=== PATIENT | male | born 1970 | race Caucasian/White ===

== ENCOUNTER 2016-09-11 08:02 | Emergency (ER) ==
[2016-09-11 08:36] LABS: URINE CULTURE NEEDED? NO; URINE SOURCE CLEAN CATCH
[2016-09-11 08:47] LABS: BILIRUBIN URINE NEGATIVE (NEGATIVE); BLOOD URINE NEGATIVE (NEGATIVE); COLOR YELLOW; GLUCOSE URINE NEGATIVE (NEGATIVE); LEUKOCYTES URINE NEGATIVE (NEGATIVE); NITRITE URINE NEGATIVE (NEGATIVE); PH URINE 8.5; PROTEIN URINE 50 mg/dL (NEGATIVE); TURBIDITY URINE HAZY (CLEAR); UROBILINOGEN URINE NORMAL (NORMAL)
[2016-09-11 08:52] LABS: URINE MICRO REVIEW NEEDED? YES
[2016-09-11 08:53] LABS: UR EPITHELIAL CELLS >10 /HPF (<10); URINE BACTERIA NEGATIVE /HPF; URINE RBC <10 /HPF (<10); URINE WBC <10 /HPF (<10)
[2016-09-11 09:00] LABS: URINE CASTS NONE SEEN; URINE CRYSTALS NONE SEEN; URINE SMALL ROUND CELLS NONE SEEN
[2016-09-11] MEDS ORDERED: NS 1,000 ML IV ONE (09:15)
[2016-09-11] MEDS ORDERED: PHENERGAN IV ONE ×2 (09:15→11:28)
[2016-09-11] MEDS ORDERED: ZOFRAN IV ONE (09:15)
[2016-09-11] MEDS ORDERED: SODIUM CHLORIDE 0.9% INJ ONE ×2 (09:15→11:28)
[2016-09-11] MEDS ORDERED: DILAUDID IV ONE ×2 (09:15→11:28)
--- NOTE | 2016-09-11 09:25 | PROVIDER DOCUMENTATION ---
HPI-Male Problem - General Chief Complaint: Flank Pain Stated Complaint: poss kidney stone Time Seen by Provider: 09/11/16 09:10 Source: patient Allergies/Adverse Reactions: Patient Allergies Allergy/AdvReac Type Severity Reaction Status Date / Time No Known Allergies Allergy Verified 09/11/16 10:15 Home Medications: Home Medication List Medication Instructions Recorded Confirmed Last Taken Type Buspirone HCl 7.5 mg PO QAM 05/13/15 05/13/15 05/13/15 History Cholecalciferol (Vitamin D3) 400 unit PO QAM 05/13/15 05/13/15 05/13/15 History [Vitamin D3] Dextroamphetamine/Amphetamine 20 mg PO BID 05/13/15 05/13/15 05/13/15 History [Adderall 20 mg Tablet] Duloxetine [Cymbalta] 60 mg PO QAM 05/13/15 05/13/15 05/13/15 History Iron Fum,Ps/FA/Vit B with C #9 1 each PO BID 05/13/15 05/13/15 05/13/15 History [Integra Plus Capsule] ROSUVAstatin [Crestor] 10 mg PO QHS 05/13/15 05/13/15 05/12/15 20:00 History Tamsulosin [Flomax] 0.4 mg PO QAM 05/13/15 05/13/15 05/13/15 History Thyroid,Pork [[place] Thyroid] 60 mg PO QAM 05/13/15 05/13/15 05/13/15 History Pantoprazole Sodium [Protonix] 40 mg PO BID #60 tablet. 05/18/15 Unknown Rx Sucralfate [Carafate Liquid] 1 gm PO Q6H #500 udc 05/18/15 Unknown Rx Hydrocodone/Acetaminophen [[place] 1 each PO TID PRN PRN #15 tablet 09/11/16 Unknown Rx 7.5-325 Tablet] Ondansetron Odt [Zofran 4 mg Odt] 4 mg PO Q6H PRN PRN #10 tablet 09/11/16 Unknown Rx Tamsulosin [Flomax] 0.4 mg PO DAILY #7 capsule 09/11/16 Unknown Rx - History of Present Illness-Male Nature of Presenting Problem: 46 y/o M presents to the ED c/o right flank pain. onset this morning 0400. some nausea and diaphoresis. denies vomiting, diarrhea, constipation and all other symptoms. pain does radiate to right quadrant. sharp stabbing in nature. no other voiced complaints. Location of Complaint: reports: right flank Radiation: reports: RLQ Quality of Pain: reports: sharp, stabbing Severity in ED: reports: severe Onset/Duration: reports: this morning (399) Timing: reports: still present Context/Activities at Onset: reports: none Urinary Symptoms: reports: no symptoms Associated Symptoms: reports: none Associated Symptoms: reports: diaphoresis, nausea. denies: constipation, diarrhea, vomiting Similar Symptoms Previously?: No Recently seen or treated by another doctor?: No Review of Systems - Adult - REVIEW OF SYSTEMS - ADULT Constitutional: denies: chills, fever Eyes: reports: no symptoms reported Ears, Nose, Mouth & Throat: reports: no symptoms reported Cardiovascular: denies: chest pain, palpitations Respiratory: denies: shortness of breath, wheezing Gastrointestinal: reports: nausea. denies: constipation, diarrhea, vomiting Genitourinary: reports: flank pain. denies: dysuria, hematuria Musculoskeletal: denies: bone pain, muscle aches Integumentary: denies: itching, rash Neurological: denies: dizziness/vertigo, headache/migraines Psychiatric: reports: no symptoms reported Endocrine: reports: no symptoms reported Hematologic/Lymphatic: reports: no symptoms reported Allergic/Immunologic: reports: no symptoms reported All Other Systems: Reviewed and Negative Past History - Adult - PAST MEDICAL HISTORY-ADULT Review of Records: reports: Nursing Assessment Review, Medications Reviewed Cardiovascular: reports: HTN Psychiatric: reports: psychiatric problems (panic attacks) Endocrine/Immune: reports: thyroid disorder (hypo) Other Conditions: reports: other cancer (melanoma) - PRIOR SURGERIES/PROCEDURES Surgical/Procedure History: reports: cholecystectomy, gastric bypass - IMMUNIZATION STATUS Childhood Immunizations: See Nurse Assessment Flu Vaccine: See Nurse Assessment - SOCIAL HISTORY Smoking: denies Substance Use: none/never Alcohol Use Frequency: never Physical Exam-General - PHYSICAL EXAM-ADULT Initial Vital Signs Reviewed: Yes - CONSTITUTIONAL General Appearance: alert, mild distress (secondary to pain), anxious ( currently in the position) - EYES Eyes: PERRL/EOMI, pink conjunctivae - HEAD, EARS, NOSE, MOUTH & THROAT HENMT: moist mucous membranes, normal ENT inspection - NECK Neck: full range of motion, normal inspection - RESPIRATORY Respiratory: lungs clear, normal breath sounds, no respiratory distress, no accessory muscle use - CARDIOVASCULAR Cardiovascular: normal peripheral pulses, regular rate, rhythm - GASTROINTESTINAL (ABDOMEN) Abdominal Exam: normal bowel sounds, soft, tenderness (right flank) - MUSCULOSKELETAL Back Exam: normal inspection, no CVA tenderness Extremity: normal range of motion, normal capillary refill - SKIN Integumentary: normal color, diaphoresis - PSYCHIATRIC Psych/Mental Status: normal mood/affect, oriented x 3 Progress - PLAN OF CARE/RESULTS Progress/Plan/Lab Results: physician will order pain medication and a workup for possible kidney stone. discussed discharge with patient at family. advised to follow up with pcp. patient verbally agrees and understands. Laboratory Tests 09/11/16 08:14 Urine Source CLEAN CATCH Urine Color YELLOW Urine Turbidity HAZY Urine pH 8.5 Ur Specific [place] 1.020 Urine Protein 50 A Ur Glucose (Stick) NEGATIVE Ur Ketones (Stick) NEGATIVE Urine Blood NEGATIVE Urine Nitrite NEGATIVE Urine Bilirubin NEGATIVE Urobilinogen Dipstick NORMAL Urine Leukocytes NEGATIVE Urine WBC (Auto) <10 Urine RBC (Auto) <10 U Epithel Cells (Auto) >10 A Urine Bacteria (Auto) NEGATIVE Urine Crystals NONE SEEN Small Round Cells NONE SEEN Urine Casts NONE SEEN Urine Yeast-like Cells NONE SEEN Orders Category Date Time Status RENAL STONE SEARCH [CT] Stat Exams 09/11/16 09:11 Draft URINALYSIS W/POSS RFLX CULT [URINALYSIS] Stat Lab 09/11/16 08:14 Completed URINE MANUAL MICROSCOPIC [URINALYSIS] Stat Lab 09/11/16 08:14 Completed 0.9% Sodium Chloride Inj [Ns] 1,000 ml Med 09/11/16 09:15 Discontinued IV 999 mls/hr Hydromorphone [Dilaudid] Med 09/11/16 09:15 Discontinued 2 mg IV NOW ONE Hydromorphone [Dilaudid] Med 09/11/16 11:28 Discontinued 2 mg IV NOW ONE Ketorolac [Toradol] Med 09/11/16 11:28 Discontinued 30 mg IV NOW ONE Ondansetron [Zofran] Med 09/11/16 09:15 Discontinued 4 mg IV NOW ONE Promethazine [Phenergan] Med 09/11/16 09:15 Discontinued 12.5 mg IV NOW ONE Promethazine [Phenergan] Med 09/11/16 11:28 Discontinued 12.5 mg IV NOW ONE Sodium Chloride 0.9% Med 09/11/16 09:15 Discontinued 10 ml INJ NOW ONE Sodium Chloride 0.9% Med 09/11/16 11:28 Discontinued 10 ml INJ NOW ONE Vital Signs - 24 hr 09/11/16 08:04 Temperature 97.3 F L Pulse Rate 67 Respiratory 28 H Rate Blood Pressure 150/85 O2 Sat by Pulse 100 Oximetry - CT/MRI 1 CT Study: Renal Stone Impression: Abnormal CT Results: 2mm stone right UVJ, no obstruction Departure - Departure Time of Disposition Order: 11:29 DIAGNOSIS: Kidney stone on right side Disposition: HOME 01 Certified Medical Emergency: Emergent Condition: Stable Additional Instructions: Take medication as prescribed. Follow up with primary doctor. ED Follow Up Instructions: You have been treated by a care provider in the Emergency Department. These instructions are being provided to you so you can have an understanding of how to care for yourself upon discharge. Upon discharge from the Emergency Department, you are responsible for making arrangements for follow-up care by a physician of your choice. Take all prescribed medications as directed. Return to the Emergency Department immediately for any new or worsening symptoms. You may call the Physician Referral phone number at [phone] to obtain a list of Physicians who are taking new patients. Prescriptions: Tamsulosin [Flomax] 0.4 mg PO DAILY #7 capsule Hydrocodone/Acetaminophen [[place] 7.5-325 Tablet] 1 each PO TID PRN PRN #15 tablet PRN Reason: Pain Ondansetron Odt [Zofran 4 mg Odt] 4 mg PO Q6H PRN PRN #10 tablet PRN Reason: Nausea And Vomiting Referrals: Bubba Shirley MD [Primary Care Provider] - Instructions: Kidney Stones, [place] Attestation - Scribe Verification/Attestation Scribe:: Marcus Dinero Acting as Scribe for:: Abilio Lee Scribe documention review:: This chart was documented by a scribe and accurately reflects the service the provider performed and the decisions made by the provider.
--- NOTE | 2016-09-11 10:22 | Diag Imaging Result Document ---
PROCEDURE NAME: RENAL STONE SEARCH - 09/11/2016 CT UROGRAM WITHOUT CONTRAST: FINDINGS: The visualized portion of the chest is unremarkable. There has been gastric bypass. There is an air fluid level in the stomach. There has been cholecystectomy. There are a few very small caliceal stones in the lower pole of the right collecting system. The right collecting system is slightly distended as is the proximal ureter. There is a 2 mm stone in the distal ureter just above the UVJ on the right. There are fat-containing inguinal hernias bilaterally. There is no evidence of bowel obstruction or appendicitis. IMPRESSION: Distal right ureteral lithiasis with minimal obstructive changes.
[2016-09-11] MEDS ORDERED: TORADOL IV ONE (11:28)
[2016-09-11 12:59] VITALS: BP 120/72
== END 2016-09-11 12:59 | disposition home or self-care (01) ==
LOC: ED 08:02
DX: N20.0 Calculus of kidney (principal); R10.9 Unspecified abdominal pain; R11.0 Nausea; R61 Generalized hyperhidrosis; R10.31 Right lower quadrant pain; R10.819 Abdominal tenderness, unspecified site; I10 Essential (primary) hypertension; E03.9 Hypothyroidism, unspecified; Z79.899 Other long term (current) drug therapy; Z85.820 Personal history of malignant melanoma of skin; Z98.84 Bariatric surgery status
CPT/HCPCS: 74176; 81001; J1170; J1885; J2405; J2550; J7030